=== PATIENT | male | born 1985 ===

== ENCOUNTER 2017-11-08 19:56 | Emergency (ER) | payer OTHER ==
[~2017-11-08] VITALS: Ht 210.8 cm; Wt 90.7 kg
[2017-11-08 20:09] VITALS: BP 145/76
--- NOTE | 2017-11-08 21:01 | ED INFLUENZA/URI COMPLAINT ---
History of Present Illness General Chief Complaint: General Adult Stated Complaint: FEVER, VOMITTING, ?FLU Source: patient Exam Limitations: no limitations Vital Signs & Intake/Output Vital Signs & Intake/Output Vital Signs Date Time Temp Pulse Resp B/P B/P Pulse O2 O2 Flow FiO2 Mean Ox Delivery Rate 11/08 2008 98.4 120 16 145/76 98 Room Air ED Intake and Output 11/09 0000 11/08 1200 Intake Total Output Total Balance Patient 200 lb Weight Weight Reported by Patient Measurement Method Allergies Coded Allergies: No Known Allergies (11/08/17) Reconcile Medications Ondansetron (Zofran Odt) 4 MG TAB.RAPDIS 1 TAB SL TID PRN nausea Triage Note: 32M WITH HEADACHE, N/V/D, TEMP 100 AT HOME AND BODY ACHES SINCE 0600 TODAY. TOOK NAPROXEN AND DRAMAMINE WITH MININAL RELIEF. C/O MID ABDOMINAL SHARP SHOOTING PAIN. LAST VOMITED AT 4PM. AFEBRILE. MEDICATED WITH TYLENOL IN TRIAGE AND FLU SWAB SENT Triage Nurses Notes Reviewed? yes Onset: Gradual Duration: hour(s): Timing: multiple episodes today Severity: moderate HPI: 32-year-old male presents emergency department complaining of nausea and vomiting with headache and body aches beginning this morning. Patient reports temperature as high as 100F at home today. Patient has taken naproxen and Dramamine today however his symptoms have persisted. The patient's daughter is also vomiting today. Patient reports 2 episodes of diarrhea today. He denies recent travel, changes in diet, sore throat, ear pain, dyspnea, chest pain. (Vi Shipman) Past History Travel History Traveled to [place] past 21 day No Medical History Any Pertinent Medical History? see below for history Musculoskeletal: L FEMUR FX WITH BLADIMIR Surgical History Surgical History: non-contributory Psychosocial History What is your primary language Turkish Tobacco Use: Never used Family History Hx Contributory? No (Vi Shipman) Review of Systems Review of Systems Constitutional: Reports: see HPI. EENTM: Reports: no symptoms. Respiratory: Reports: no symptoms. Cardiovascular: Reports: no symptoms. GI: Reports: see HPI. Genitourinary: Reports: no symptoms. Musculoskeletal: Reports: see HPI. Skin: Reports: no symptoms. Neurological/Psychological: Reports: see HPI. Hematologic/Endocrine: Reports: no symptoms. Immunologic/Allergic: Reports: no symptoms. All Other Systems: Reviewed and Negative (Vi Shipman) Physical Exam Physical Exam General Appearance: well developed/nourished, no apparent distress, alert, awake Head: atraumatic, normal appearance Eyes: Bilateral: normal appearance. Ears, Nose, Throat: normal ENT inspection, moist mucous membrane, hearing grossly normal, Tympanic normal, pharynx normal Neck: normal inspection, supple, full range of motion Respiratory: normal breath sounds, no respiratory distress, lungs clear Cardiovascular: tachycardia Gastrointestinal: normal bowel sounds, soft, non-tender, no organomegaly Back: normal inspection, normal range of motion Extremities: normal inspection, normal range of motion Neurologic/Psych: awake, alert, oriented x 3 Skin: intact, normal color, warm/dry Core Measures Sepsis Present: No Sepsis Focused Exam Completed? No (Vi Shipman) Progress Differential Diagnosis: influenza, otitis, pharyngitis, gastroenteritis, appendicitis, SBO Plan of Care: Orders Procedure Date/time Status RAPID VIRAL INFLUENZA A 11/08 2011 Complete Microbiology 11/08 2014 NASOPHARYN: Influenza Virus A & B Rapid Smear - COMP Patient's rapid flu swab was negative. Patient medicated with ODT Zofran here in the emergency Department. Patient reports improvement in nausea following this medication. He is tolerating PO here in the emergency department. Patient abdominal exam is without tenderness, no McBurney's point tenderness, low suspicion for appendicitis at this time. Patient was offered IV medication and fluids however he declines at this time. Patient feels ready to go home. He was educated on rest and fluid hydration as tolerated. The patient agrees with the plan of care. He is in no acute distress, nontoxic appearing. Initial ED EKG: none (Vi Shipman) Departure Departure Disposition: HOME OR SELF CARE Condition: Stable Clinical Impression Primary Impression: Nausea & vomiting Referrals: Patient Has No Primary Care Dr (PCP/Family) Additional Instructions: Take Zofran as prescribed as needed for nausea. Slowly advance your diet from clear liquids to bland foods such as bananas, rice, applesauce, toast. Once here tolerated bland foods you may slowly advance her diet to more regular foods for you. Return to the emergency Department with any worsening symptoms or other concerns. Please note that there might be incidental findings in your evaluation that are unrelated to the current emergency department visit. Please notify your primary care doctor about this emergency department visit in order to obtain and review all of the testing performed so that these incidental findings can be monitored as needed. If you had an x-ray performed, please understand that some fractures may not be seen on the initial set of x-rays. If your symptoms persist you might need a repeat set of x-rays to check for such a fracture. If you had a laceration evaluated, please understand that foreign bodies such as glass or wood may not be visible to the naked eye or on plain x-rays. If the wound becomes red, swollen, increasingly more painful or if there is any drainage from the wound, please have it reevaluated by a physician for the possibility of a retained foreign body. If you're unable to follow up as outlined in the discharge instructions please return to the emergency department. Thank you for choosing the [facility] Emergency Department for your care. It was a pleasure to serve you today. Departure Forms: Customer Survey General Discharge Information Prescriptions: Current Visit Scripts Ondansetron (Zofran Odt) 1 TAB SL TID PRN nausea #10 TAB (Brionna VELASQUEZ,Vi Spangler) PA/[employer] LIFT NAILER Co-Sign Statement Statement: ED Attending supervision documentation- [] I saw and evaluated the patient. I have also reviewed all the pertinent lab results and diagnostic results. I agree with the findings and the plan of care as documented in the PA's/TOP LIFT NAILER's documentation. [x] I have reviewed the ED Record and agree with the PA's/TOP LIFT NAILER's documentation. [] Additions or exceptions (if any) to the PAs/TOP LIFT NAILER's note and plan are summarized below: [] (Raya NOYOLA,Mickey Payne)
[2017-11-08] MEDS ORDERED: ZOFRAN ODT4 M1 SL (22:13)
== END 2017-11-08 22:35 ==
LOC: ERH 19:56
DX: R11.2 Nausea with vomiting, unspecified (principal); R51 Headache
CPT/HCPCS: 87804; 87804-59; J3101